=== PATIENT | male | born 1970 | race African-American/Black ===

== ENCOUNTER 2018-06-02 12:07 | Emergency (ER) | payer OTHER ==
--- NOTE | 2018-06-02 12:10 | ED Physician Documentation ---
General Adult - HISTORIAN Historian: patient - HPI Stated Complaint: hip pain, upper leg pain, left buttock pain - no injury Chief Complaint: General Adult Onset: days ago (5- overall 8 years of pain ) Timing: still present Severity: mild Further Comments: yes (He reports bilateral hip replacement . he states he has had pain issues for over 8 years and he has had pain treatment. He had surgery "recently" he now lives in [facility]. He states he has a pain management appt jun 29. He has had oxycodone and others for pain. He reports pain is "all the t elyse" and is 04/29. He has no loss of control of bowel or bladder He has not taken any OTC meds today) - ROS CONST: no problems - PAST HX Past History: other (Chronic pain, HTN, DM) Immunizations: UTD Allergies/Adverse Reactions: Allergies Allergy/AdvReac Type Severity Reaction Status Date / Time No Known Allergies Allergy Verified 06/02/18 12:23 Home Medications: Ambulatory Orders Medication Instructions Recorded Celecoxib [Celebrex] 1 tab PO DAILY 06/02/18 Lisinopril [Zestril] 1 tab PO DAILY 06/02/18 Metformin HCl [Glucophage] 1 tab PO BID 06/02/18 Metoprolol Tartrate [Lopressor] 1 tab PO DAILY 06/02/18 Pregabalin [Lyrica] 1 tab PO BID 06/02/18 Tizanidine HCl [Zanaflex] 1 tab PO DAILY 06/02/18 Tramadol HCl [Ultram] 1 tab PO BID 06/02/18 - SOCIAL HX Smoking History: non-smoker Alcohol Use: none Drug Use: none - FAMILY HX Family History: No - REVIEWED ASSESSMENTS Nursing Assessment Reviewed: Yes Vitals Reviewed: Yes Progress - Progress Progress: 1314: results and plan discussed. He refuses pain meds via injection. He has tramadol for pain at home and pain management appt ED Results Lab/Radiology - Radiology Radiology Impressions: AP pelvis and bilateral hips History: Hip pain AP views of the pelvis and frogleg lateral projections of the bilateral hips demonstrate total bilateral hip replacements. The prosthetic components are intact. There is no evidence for loosening. No acute osseous abnormalities are noted. SI joints are patent. Impression: Bilateral total hip replacements. Otherwise, no osseous abnormality. Electronically signed on Jun 02, 2018 12:57:52 PM LIFE GUARD by: Ange Miles General Adult Physical Exam - PHYSICAL EXAM GENERAL APPEARANCE: no distress EENT: eye inspection normal NECK: normal inspection RESPIRATORY: no resp distress, chest non-tender CVS: reg rate & rhythm, heart sounds normal, equal pulses ABDOMEN: soft, no distension SKIN: warm/dry EXTREMITIES: non-tender, normal range of motion, no evidence of injury, no edema, other (mild pain with palpation of left lower back/buttock ) NEURO: oriented X3 Discharge Clincal Impression: Chronic pain Qualifiers: Chronic pain type: other chronic pain Qualified Code(s): G89.29 - Other chronic pain Referrals: Primary Doctor,No [Primary Care Provider] - 2 Days Comments: 1. Continue meds as prescribed for pain 2. Keep you pain management appt 3. See your PCP for pain meds as prescribed 4. Return to ER for increased pain or concerns Condition: Stable Disposition: 01 HOME, SELF-CARE Decision to Admit: NO Date of Decison to Admit: 06/02/18 Decision Time: 13:14
[2018-06-02 12:23] VITALS: BP 179/119
[2018-06-02] MEDS ORDERED: KETOROLAC TROMETHAMINE 60 MG/2 ML VIAL IM ONE (13:05)
[2018-06-02] MEDS ORDERED: methylPREDNISolone ACETATE 80 MG/ML VIAL IM ONE (13:06)
--- NOTE | 2018-06-02 13:49 | Diagnostic Imaging Report ---
[facility] [address] [facility].[address] [id number] Report Submission Date: Jun 02, 2018 12:57:52 PM PARIMUTUEL CASHIER Patient Study Name: BLAISE VELASQUEZ Date: Jun 02, 2018 12:29:36 PM PARIMUTUEL CASHIER Modality Type: DX Gender: M Description: PELVIS : 74 Institution: [facility] Physician: [facility] AP pelvis and bilateral hips History: Hip pain AP views of the pelvis and frogleg lateral projections of the bilateral hips demonstrate total bilateral hip replacements. The prosthetic components are intact. There is no evidence for loosening. No acute osseous abnormalities are noted. SI joints are patent. Impression: Bilateral total hip replacements. Otherwise, no osseous abnormality. Electronically signed on Jun 02, 2018 12:57:52 PM PARIMUTUEL CASHIER by: Ange GILMAN
== END 2018-06-02 13:19 | disposition home or self-care (01) ==
LOC: ED 12:07
DX: M25.552 Pain in left hip (principal); G89.29 Other chronic pain; I10 Essential (primary) hypertension; E11.9 Type 2 diabetes mellitus without complications
CPT/HCPCS: 73521; 96372; 99283